=== PATIENT | male | born 1950 | race Caucasian/White ===

== ENCOUNTER 2017-09-15 20:35 | Emergency (ER) | payer MEDICARE, OTHER ==
[~2017-09-15] VITALS: Ht 175.3 cm; Wt 67.7 kg
[~2017-09-15 20:35] MED LIST: BACT800T5 PO
[2017-09-15 20:37] VITALS: BP 151/72; PULSE 73; RESP 16; TEMP 98.9; O2SAT 98
[2017-09-15] MEDS ORDERED: NEUR300C PO (22:05)
[2017-09-15] MEDS ORDERED: LIDO1PAD52 TOPICAL (22:05)
--- NOTE | 2017-09-15 22:12 | PD ---
HPI Chief Complaint: Musculoskeletal Complaint Time Seen by Provider: 21:52 Travel History International Travel<30 days: No Contact w/Intl Traveler<30days: No Traveled to known affect area: No History of Present Illness HPI 67-year-old white male presents to emergency department with complains of left lower back pain with radiation into his left leg to his left knee for the last 2 weeks. He states that he was carrying spools a wire up and down stairs 2 weeks ago. He states that this has aggravated his back. He has had a history of a back injury in the past with a laminectomy by Dr. Chen. The patient states that he had been seen by his primary care doctor on Tuesday who had prescribed him tramadol and cyclobenzaprine. The medication has made him constipated therefore he has not taken it again. He states that he will not take it until he has a bowel movement. The patient states that he would like to have his pain "numb". He states that the pain is moderate but can be severe with movement. Some alleviating factors and laying still. The patient states that he would like to get an MRI of his back to rule out a herniated disc. The patient has been informed that we do not perform MRIs on acute back pain in the ER. 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[employer]) Allergies-Medications (Allergen,Severity, Reaction): Coded Allergies: penicillin G (Unverified Allergy, Unknown, 09/15/17) CHILDHOOD ALLERGY PER PT Reported Meds & Prescriptions Reported Meds & Active Scripts Active Neurontin (Gabapentin) 300 Mg Cap 300 Mg PO TID Lidocaine Patch 12 HR (Lidocaine) 5 % Patch 1 Patch TOPICAL DAILY Remove patch after 12 hours Bactrim DS (Sulfamethoxazole-Trimethoprim) 800-160 Mg Tab 1 Tab PO BID Reported Plavix (Clopidogrel Bisulfate) 75 Mg Tab 75 Mg PO DAILY Review of Systems General / Constitutional: No: Fever Eyes: No: Visual changes HENT: No: Headaches Cardiovascular: No: Chest Pain or Discomfort Respiratory: No: Shortness of Breath Gastrointestinal: No: Abdominal Pain Genitourinary: No: Dysuria Musculoskeletal: Positive: Arthralgias, Limited ROM, Cramping, Pain, No: Weakness Skin: No Rash Neurologic: No: Weakness Psychiatric: No: Depression Endocrine: No: Polydipsia Hematologic/Lymphatic: No: Easy Bruising Physical Exam Narrative GENERAL: Well-developed, well-nourished in no apparent distress. Nontoxic appearing. HEAD: Normocephalic, atraumatic. EYES: Pupils equal round and reactive. Extraocular motions intact. No scleral icterus. No injection or drainage. ENT: Nose clear. Throat without erythema, tonsillar hypertrophy or exudate. Uvula midline. Airway patent. NECK: Trachea midline. Supple, nontender, moves head freely. No central bony tenderness or spasm. CARDIOVASCULAR: Regular rate and rhythm without murmurs, gallops, or rubs. RESPIRATORY: Clear to auscultation. Breath sounds equal bilaterally. No wheezes , rales, or rhonchi. GASTROINTESTINAL: Abdomen soft, non-tender, nondistended. No hepato-splenomegaly , or palpable masses. No guarding. EXTREMITIES: No clubbing, cyanosis, or edema. No joint tenderness. Examination the left lower extremity reveals no obvious joint effusion. No anterior posterior draw. No medial or lateral collateral ligament instability. Full range of motion. No swelling. BACK: Nontender without deformity. No flank tenderness. No saddle anesthesia. Able to heel and toe stand. Decreased forward flexion to 70. Patient has intact gross sensation with good pulses. No gross spasm. Patient complains of left paralumbar tenderness into left buttocks and down the left leg. NEUROLOGICAL: Awake, alert and oriented x 3 .Cranial nerves grossly intact. Motor and sensory grossly within normal limits. Normal speech. Data Data Last Documented VS Vital Signs Date Time Temp Pulse Resp B/P (MAP) Pulse Ox O2 Delivery O2 Flow Rate FiO2 09/15/17 20:37 98.9 73 16 151/72 (98) 98 Room Air Orders Orders Dexamethasone Inj (Decadron Inj) (09/15/17 22:15) Gabapentin (Neurontin) (09/15/17 22:15) Lidocaine 5% Patch.12 Hr (Lidoderm 5% Pa (09/15/17 22:15) Ed Discharge Order (09/15/17 22:13) MDM Medical Decision Making Medical Screen Exam Complete: Yes Emergency Medical Condition: Yes Medical Record Reviewed: Yes Differential Diagnosis MDM: High Differential diagnoses: Fracture, sprain, strain, HNP, nerve or vascular injury Narrative Course I have explained to the patient that there is no indication for an emergent MRI today. The patient states that he does not understand why we cannot perform an MRI today. He states that he feels that this is an MRI and feels that he should get a scan today. The patient is given Decadron 10 mg IM. The patient has been informed to take MiraLAX and Dulcolax [id number] to enable him to stool properly. He should go back on his Flexeril and tramadol. We will add in Neurontin and Lidoderm patches. He is instructed to call Dr. Chen his orthopedic surgeon. The patient is unhappy with his care today. I tried to answer all of his questions the best of my ability. I have had the charge nurse come down and talk with this patient. This is acute back pain with left sciatica Diagnosis Primary Impression: Acute low back pain with left-sided sciatica Qualified Codes: M54.42 - Lumbago with sciatica, left side Patient Instructions: General Instructions Additional Instructions: Rest. Ice for the next 3 days followed by heat . 2-MiraLAX and 16 ounces of water and Dulcolax tablet. Continue to take your Flexeril and Ultram. Neurontin and Lidoderm patches. Follow-up with a primary care doctor tomorrow. Follow-up with Dr. Chen your orthopedic surgeon in the next 3-5 days. Return to the ER for emergencies. Med/Other Pt SpecificInfo: Prescription(s) given Scripts Gabapentin (Neurontin) 300 Mg Cap 300 MG PO TID, #90 CAP 0 Refills Prov: Miky Turcios MD 09/15/17 Lidocaine Patch 12 HR (Lidocaine Patch 12 HR) 5 % Patch 1 PATCH TOPICAL DAILY for Pain Management, #1 BOX 0 Refills Remove patch after 12 hours Prov: Miky Turcios MD 09/15/17 Disposition: 01 DISCHARGE HOME Condition: Stable Abelino Rosas Sep 15, 2017 22:12
[2017-09-15] MEDS ORDERED: LIDOCAINE HCL 5% PATCH T-DERMAL ONE (22:15)
[2017-09-15] MEDS ORDERED: DEXAMETHASONE SOD PHOS 20 MG/5 ML VIAL IM ONE (22:15)
[2017-09-15] MEDS ORDERED: GABAPENTIN 300 MG CAP PO ONE (22:15)
[2017-09-15] MEDS ORDERED: PLAV75TA29 PO (22:28)
== END 2017-09-15 22:55 | disposition home or self-care (01) ==
LOC: NEPD 20:35
DX: M54.42 Lumbago with sciatica, left side (principal); I25.10 Atherosclerotic heart disease of native coronary artery without angina pectoris; F17.200 Nicotine dependence, unspecified, uncomplicated; F12.90 Cannabis use, unspecified, uncomplicated
CPT/HCPCS: 96372; 99284; J1100

== ENCOUNTER 2017-09-18 10:37 | Emergency (ER) | payer MEDICARE ==
[~2017-09-18] VITALS: Ht 175.3 cm; Wt 67.5 kg
[~2017-09-18 10:37] MED LIST changes: -BACT800T5 PO; +LIDO1PAD52 TOPICAL; +NEUR300C PO; +PLAV75TA29 PO
[2017-09-18 10:40] VITALS: BP 161/86; PULSE 83; RESP 14; TEMP 98.4; O2SAT 99
[2017-09-18] MEDS ORDERED: NORC5TAB PO (10:56)
[2017-09-18] MEDS ORDERED: CYCL10TA PO (10:56)
[2017-09-18] MEDS ORDERED: KETO10 PO (10:56)
[2017-09-18] MEDS ORDERED: TRAM50TA PO (10:56)
--- NOTE | 2017-09-18 11:43 | PD ---
HPI Chief Complaint: Pain: Acute or Chronic Time Seen by Provider: 11:02 Travel History International Travel<30 days: No Contact w/Intl Traveler<30days: No Traveled to known affect area: No History of Present Illness HPI 67-year-old male with history of low back pain in the past. He has history of L4-L5 fusion by Dr. Chen in 1991. Patient states 3 weeks ago he hurt his back moving some musical amp equipment. He's been seen multiple times by his primary care physician, as well as chiropractor, as well as visit to [facility] and here. Patient has been given Flexeril, Lortab, Percocet , and a prescription for gabapentin. Patient has not had any anti-inflammatory treatment. Patient does take Plavix for previous stent. Patient states his pain seemed to improve after seeing the chiropractic in terms of his back pain, but he continues to complain of left hip and knee aching pain. He denies weakness. He denies changes in his bowel or bladder. He did have constipation with his medication use recently however. Patient is here as his pain continues and is an 8 out of 10. It does seem worse with laying on his back or left side. It is also worse with ambulation. He denies effusion of the left knee, catching of the left knee, or giving out of the left knee. He states he can run up and down stairs but his knee would hurt. He describes the pain as a burning ache. He is allergic to penicillin. 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) Allergies-Medications (Allergen,Severity, Reaction): Coded Allergies: penicillin G (Unverified Allergy, Unknown, 09/18/17) CHILDHOOD ALLERGY PER PT Reported Meds & Prescriptions Reported Meds & Active Scripts Active Reported [place] (Hydrocodone-Acetaminophen) 5 Mg-325 Mg Tab 1 Tab PO Q4H PRN Ketorolac (Ketorolac Tromethamine) 10 Mg Tab 10 Mg PO TID PRN Tramadol (Tramadol HCl) 50 Mg Tab 50 Mg PO DAILY PRN Flexeril (Cyclobenzaprine HCl) 10 Mg Tab 10 Mg PO TID PRN Plavix (Clopidogrel Bisulfate) 75 Mg Tab 75 Mg PO DAILY Review of Systems Except as stated in HPI: all other systems reviewed are Neg General / Constitutional: No: Fever Eyes: No: Visual changes HENT: No: Headaches Cardiovascular: No: Chest Pain or Discomfort Respiratory: No: Shortness of Breath Gastrointestinal: No: Abdominal Pain Genitourinary: No: Dysuria Musculoskeletal: Positive: Arthralgias, Pain, No: Limited ROM Skin: No Rash Neurologic: No: Weakness Psychiatric: No: Depression Endocrine: No: Polydipsia Hematologic/Lymphatic: No: Easy Bruising Physical Exam Narrative GENERAL: Patient appears in mild distress appearing is noted to be laying on his right side with a pillow under his left knee. SKIN: Warm and dry. Color. Normal turgor. No signs of rash. HEAD: Atraumatic. Normocephalic. EYES: Pupils equal and round. No scleral icterus. No injection or drainage. ENT: No nasal bleeding or discharge. Mucous membranes pink and moist. NECK: Trachea midline. Neck is supple nontender. CARDIOVASCULAR: Regular rate and rhythm. RESPIRATORY: No accessory muscle use. Clear to auscultation. Breath sounds equal bilaterally. GASTROINTESTINAL: Abdomen soft, non-tender, nondistended. Hepatic and splenic margins not palpable. MUSCULOSKELETAL: Extremities without clubbing, cyanosis, or edema. No obvious deformities. Left knee exam shows no effusion, laxity, negative Lucero sign. Negative drawer test. No real reproducible pain with palpation. Patient does have pain with palpation into the left sciatic notch re-creating his pain in the left hip and knee. The lumbar spine itself does not appear to be tender with palpation. He does not have significant straight leg raise pain at this time. He has no weakness in either lower extremity. Deep tendon reflexes are 2 + and equal bilaterally. NEUROLOGICAL: Awake and alert. No obvious cranial nerve deficits. Motor grossly within normal limits. Five out of 5 muscle strength in the arms and legs. Normal speech. PSYCHIATRIC: Appropriate mood and affect; insight and judgment normal. Data Data Last Documented VS Vital Signs Date Time Temp Pulse Resp B/P (MAP) Pulse Ox O2 Delivery O2 Flow Rate FiO2 09/18/17 10:40 98.4 83 14 161/86 (111) 99 Orders Orders Ketorolac Inj (Toradol Inj) (09/18/17 11:45) Dexamethasone Inj (Decadron Inj) (09/18/17 11:45) [facility] Medical Decision Making Medical Screen Exam Complete: Yes Emergency Medical Condition: Yes Medical Record Reviewed: Yes Differential Diagnosis Lumbar strain. Radiculopathy. Spinal stenosis. Possible herniated disc. Narrative Course Patient is medically stable at time of exam. Radiographic imaging is not felt warranted based on my history and physical at this time. Patient will be given Decadron 10 mg IM, as well as Toradol 60 mg IM. Patient will be continued on a prednisone dosepak as prescribed. Patient also given gabapentin 100 mg 3 times a day #90. Patient has previous pain medication prescriptions as needed. He is to walk frequently, use heat and ice, and follow-up with Dr. Chen as needed. Diagnosis Primary Impression: Acute low back pain with left-sided sciatica Qualified Codes: M54.42 - Lumbago with sciatica, left side Referrals: Yonatan Cedeno MD Patient Instructions: General Instructions, Lower Back Exercises (ED), Lumbar Radiculopathy (ED) Additional Instructions: Radiographic imaging is not felt warranted based on my history and physical at this time. Patient will be given Decadron 10 mg IM, as well as Toradol 60 mg IM. Patient will be continued on a prednisone dosepak as prescribed. Patient also given gabapentin 100 mg 3 times a day #90. Patient has previous pain medication prescriptions as needed. He is to walk frequently, use heat and ice, and follow-up with Dr. Chen as needed. Med/Other Pt SpecificInfo: Prescription(s) given Disposition: 01 DISCHARGE HOME Condition: Stable Joseluis Mccrary Sep 18, 2017 11:43
[2017-09-18] MEDS ORDERED: GABA100C4 PO (11:44)
[2017-09-18] MEDS ORDERED: PRED10PA2 PO (11:44)
[2017-09-18] MEDS ORDERED: KETOROLAC TROMETHAMINE 60 MG/2 ML (IM) VIAL IM ONE (11:45)
[2017-09-18] MEDS ORDERED: DEXAMETHASONE SOD PHOS 20 MG/5 ML VIAL IM ONE (11:45)
== END 2017-09-18 12:18 | disposition home or self-care (01) ==
LOC: NEPD 10:37
DX: M54.42 Lumbago with sciatica, left side (principal); F17.200 Nicotine dependence, unspecified, uncomplicated; Z88.0 Allergy status to penicillin; Z79.02 Long term (current) use of antithrombotics/antiplatelets; Z79.899 Other long term (current) drug therapy
CPT/HCPCS: 96372; 99284; J1100; J1885